=== PATIENT | male | born 1930 ===

== ENCOUNTER 2020-08-16 13:07 | Emergency (ER) | payer OTHER ==
[~2020-08-16] VITALS: Ht 165.1 cm; Wt 64.0 kg
[2020-08-16] MEDS ORDERED: AMLODIPINE BESYL5 MG (13:27)
[2020-08-16] MEDS ORDERED: CARVEDILOL25 MG (13:28)
[2020-08-16] MEDS ORDERED: TAMS0.4C (13:28)
== END 2020-08-16 18:59 | disposition home or self-care (01) ==
LOC: ER 13:07
DX: S00.83XA Contusion of other part of head, initial encounter (principal); W18.09XA Striking against other object with subsequent fall, initial encounter; Y93.89 Activity, other specified; Y92.89 Other specified places as the place of occurrence of the external cause; Y99.8 Other external cause status